=== PATIENT | female | born 1995 | race Caucasian/White ===

== ENCOUNTER 2021-02-23 16:36 | Emergency (ER) | payer MEDICAID, SELFPAY ==
[2021-02-23 16:37] VITALS: BP 105/77; PULSE 73; RESP 16; TEMP 36.1; O2SAT 98; BMI 24.7
[2021-02-23 16:59] LABS: Bacteria 0 SEEN /hpf (None Seen); Mucous, Urine 0 SEEN /hpf (<or=2+); Red Blood Cells-Urine 0 SEEN /hpf (0-5)
[2021-02-23 17:07] LABS: Color, Urine Yellow (Yellow); Glucose, Dipstick Normal (Normal); Ketone-Dipstick Negative (Negative); Leukocyte Esterase-Dipstick 25 /ul (Negative); Nitrite-Dipstick Negative (Negative); Occult Blood-Urine Negative /ul (Negative); Protein-Dipstick Negative (Negative); Urine Bilirubin Dipstick Negative (Negative); Urine Clarity Clear (Clear); Urine Urobilinogen Normal (Normal)
--- NOTE | 2021-02-23 17:08 | CT_ITS ---
EXAM: CT ABDOMEN AND PELVIS WITHOUT INTRAVENOUS CONTRAST : 1995 CLINICAL INDICATION: Flank pain TECHNIQUE: Helically acquired images were obtained of the abdomen and pelvis without intravenous contrast. This CT exam was performed using one or more of the following dose reduction techniques: automated exposure control, adjustment of the mA and/or kV according to patient size, and/or use of iterative reconstruction technique. This report was created using re[employer] report generation technology. COMPARISON: None. FINDINGS: LOWER THORAX: Unremarkable. Lung bases are clear. No cardiomegaly. No significant pericardial effusion. ABDOMEN: LIVER: Unremarkable. Homogeneous. GALLBLADDER AND BILE DUCTS: Unremarkable. No calcified gallstones. No gallbladder distention or wall edema. No intra- or extrahepatic biliary ductal dilation. PANCREAS: Unremarkable. No focal cystic mass. SPLEEN: Unremarkable. Normal size without focal cystic or solid mass. ADRENALS: Unremarkable. No nodules. KIDNEYS AND URETERS: Unremarkable. Normal renal size and position. No hydronephrosis. STOMACH AND BOWEL: Unremarkable. No stomach or bowel distention. No focal inflammatory change. PELVIS: APPENDIX: No evidence of acute appendicitis. BLADDER: Unremarkable. REPRODUCTIVE: Unremarkable as visualized. No mass. ABDOMEN and PELVIS: INTRAPERITONEAL SPACE: Unremarkable. No ascites or other fluid collection. No free air. BONES/JOINTS: Unremarkable. No suspicious lytic or blastic abnormality. SOFT TISSUES: Unremarkable. No discrete abdominal or pelvic wall hernia. VASCULATURE: Unremarkable. Abdominal aorta is non-dilated. LYMPH NODES: Unremarkable. No enlarged lymph nodes. CT/Abdomen/Pelvis without Cont IMPRESSION: Negative CT of the abdomen and pelvis without intravenous contrast. Individualized dose optimization techniques were used for this CT. at 1827 Reported and signed by: Marcin Nixon MD Electronically Signed: Marcin Nixon MD at 18:26 EDT Tel , Service support ,
--- NOTE | 2021-02-23 17:10 | EX.ED.DYSGE1 ---
HPI History of Present Illness Chief Complaint: Flank Pain Informant: patient Onset/Context/Timing Onset: Yesterday Context: Gradual Onset Timing: Continuous Quality: Sharp Location: Lower back, lower abdomen Worsened by: Nothing Relieved by: Nothing Narrative Narrative: Patient presents with lower back and lower abdominal pain that began yesterday. Patient states it is getting progressively worse. Patient states it started in her back last night. Patient states today radiates around to her lower abdomen. Patient denies any dysuria or hematuria. Patient denies any fevers or chills. Patient denies any nausea or vomiting. Patient states nothing makes the pain worse. Patient states nothing makes the pain better. Patient states she has a history of ovarian cysts and this feels similar to prior cysts. PFSH PFSH no medical history Home Medications NK 02/23/21 [History Last Taken Unknown] Allergy/AdvReac Type Severity Reaction Status Date / Time No Known Allergies Allergy Verified 02/23/21 16:36 no surgical history Social History Smoking Status: Never smoker ROS ROS ED Constitutional Constitutional ED: Denies chills or fever(s) Eyes Eyes: Denies blurry vision or change in vision ENT ENT ED: Denies rhinorrhea or sore throat Cardiovascular Cardiovascular: Denies chest pain or palpitations Respiratory/Chest Respiratory/Chest: Denies cough or dyspnea Gastrointestinal Gastrointestinal: Denies nausea or vomiting Genitourinary Genitourinary ED: Denies dysuria or hematuria Musculoskeletal Musculoskeletal: Denies back pain or neck pain Integumentary Denies abscess or rash Neurologic Neurologic: Denies headache(s) or weakness Allergic/Immunologic Allergic/Immunologic ED: Denies mouth swelling or urticaria EXAM Physical Exam Const Vital Signs: 02/23/21 16:37 02/23/21 18:43 Temperature 96.9 F L Temperature Source Temporal Pulse Rate 73 62 Respiratory Rate 16 17 Blood Pressure 105/77 134/77 H Blood Pressure Mean 86 96 Pulse Ox 98 98 Oxygen Delivery Method Room Air Room Air Positive well nourished and well developed General Appearance ED: well developed HEENT Reports moist mucous membranes Neck supple and no JVD Resp normal respiratory effort and clear to auscultation bilaterally Cardio regular rate, regular rhythm and no murmurs GI normal to inspection, nondistended, normoactive bowel sounds Palpation: soft and tender suprapubic; Negative for guarding or rebound tenderness present Back/Spine Back/Spine Narrative: There is mild tenderness of the lower lumbar paraspinal muscles bilaterally. There is no midline tenderness. There is no edema or ecchymosis. There is no bony crepitance or step-off. There is good range of motion. Extremity normal to inspection General Extremety ED: Negative for edema or tenderness General Extremity: Negative for edema Neuro oriented x3, CN's II-XII intact bilaterally and no sensory deficits noted Sensorium / Orientation: alert Motor Exam: strength 5/5 throughout Psych mental status grossly normal Skin no rashes or lesions noted MDM MDM MDM Narrative Medical decision making narrative: CBC and comprehensive metabolic profile were obtained were within normal limits. Urinalysis does not show any evidence of urinary tract infection. Urine hCG was negative. CT scan of the abdomen and pelvis was obtained. There is no acute intra-abdominal abnormality. This was interpreted by the radiologist and reviewed by myself. Patient was feeling better on reevaluation. Patient was instructed to follow-up with her primary care physician in 5 to 7 days. Patient understood and was agreeable with the plan. All questions were answered. Lab Data Attestation: I reviewed the patient's lab results. Labs: Laboratory Results - last 24 hr 02/23/21 02/23/21 02/23/21 16:45 17:20 17:20 WBC 5.9 RBC 4.39 Hgb 13.0 Hct 38.6 MCV 87.9 MCH 29.6 MCHC 33.7 RDW Std Deviation 40.0 RDW Coeff of Vaishali 12.5 Plt Count 211 MPV 11.8 Immature Gran % (Auto) 0.200 Neut % (Auto) 52.9 Lymph % (Auto) 33.3 [place] % (Auto) 10.2 H Eos % (Auto) 3.1 Baso % (Auto) 0.3 Absolute Neuts (auto) 3.1 Absolute Lymphs (auto) 1.95 Nucleated RBC % 0 Differential Comment SCANNED Sodium 138 Potassium 3.7 Chloride 110 H Carbon Dioxide 23.0 Anion Gap 5 BUN 14 Creatinine 0.90 Estim Creat Clear Calc 67.44 Est GFR (MDRD) Af Amer 96 Est GFR (MDRD) Non-Af 80 BUN/Creatinine Ratio 15.5 Glucose 110 H Calcium 8.6 Total Bilirubin 0.30 AST 23 ALT 13 Alkaline Phosphatase 69 Total Protein 7.1 Albumin 3.7 Globulin 3.4 Albumin/Globulin Ratio 1.1 Urine Color Yellow Urine Clarity Clear Urine pH 7.0 Ur Specific [place] 1.010 Urine Protein Negative Urine Glucose (UA) Normal Urine Ketones Negative Urine Occult Blood Negative Urine Nitrite Negative Urine Bilirubin Negative Urine Urobilinogen Normal Ur Leukocyte Esterase 25 H Urine RBC 0 SEEN Urine WBC 0-5 SEEN Ur Squamous Epith Cells 0-5 SEEN Urine Bacteria 0 SEEN Urine Mucus 0 SEEN Urine Test Negative Radiography Diagnostic Testing: Radiology Impression Abdomen/Pelvis CT 02/23/21 17:08 IMPRESSION: Negative CT of the abdomen and pelvis without intravenous contrast. Individualized dose optimization techniques were used for this CT. at 1827 Reported and signed by: Marcin Nixon MD Electronically Signed: Marcin Nixon MD at 18:26 EDT Tel , Service support , Discharge Plan Triage Chief Complaint: Flank Pain ED Provider: Michael Holden Dx/Rx/DC Orders Clinical Impression: Pelvic pain in female Instructions: ED Pelvic Pain, Unknown Cause Prescriptions: No Action NK RF: 0 Primary Care Provider: Care Physician,No Primary Referrals: Luis F Silva DO [NON-STAFF] - 5-7 Days Care Physician,No Primary [Primary Care Provider] - Disposition Disposition: Home, Self Care
[2021-02-23 17:13] LABS: Internal QC Validated? YES +Cl - CLEAR BKGD; Pregnancy, Urine Negative Negative; Squamous Epithelial Cells - UA 0-5 SEEN /hpf (5-10); White Blood Cells 0-5 SEEN /hpf (0-5)
--- NOTE | 2021-02-23 17:38 | CM.ED ---
SW Note Referral Source: Case Find Referral Reason: No Primary Care Physician (PCP) SW reviewed chart and noted that patient has no PCP. SW provided patient with list of [facility] and [facility] Physician List for reference. SW also provided patient with handout ?Where to go When?. No other issues or concerns voiced at this time. SW remains available for any additional needs. Plan: Provided patient with PCP information Erica KENDALL
[2021-02-23 17:39] LABS: Absolute Lymphocyte Count 1.95 X10^3/uL (0.83-4.51); Absolute Neutrophil Count 3.1 X10^3/uL (2.0-7.7); Basophil# 0.02 X10^3/uL; Basophil% 0.3 % (0-1); Eosinophil# 0.18 X10^3/uL; Eosinophils% 3.1 % (0-5); Hematocrit 38.6 % (37-47); Lymphocyte # 1.95 X10^3/ul (0.83-4.51); Lymphocyte % 33.3 % (19-41); Mean Corp Hgb Conc 33.7 g/dL (32-36); Mean Corpuscular Hgb 29.6 pg (27.0-32.0); Mean Corpuscular Volume 87.9 fL (81-99); Mean Platelet Vol. 11.8 fl (6.2-12.0); Monocyte% 10.2 % (0-10); NRBC Flagged by Analyzer 0 % (0-5); Neutrophil % 52.9 % (47-70); POSITIVE COUNT YES; Platelet Count 211 K/mm3 (150-450); RBC Distribution Width CV 12.5 % (11.6-14.6); Red Blood Count 4.39 M/mm3 (4.2-5.4); White Blood Count 5.9 K/mm3 (4.4-11.0)
[2021-02-23 17:42] LABS: Differential Indicated SCAN CRITERIA MET
[2021-02-23 17:59] LABS: ALB/GLOB Ratio 1.1 RATIO (0.9-2.4); AST(SGOT) 23 U/L (15-37); Alanine Aminotransfer ALT/SGPT 13 U/L (13-56); Albumin, Serum 3.7 g/dL (3.2-5.0); Alkaline Phosphatase 69 U/L (45-117); Anion Gap 5 (5-15); BUN 14 mg/dL (7-18); BUN/Creat Ratio 15.5 RATIO (10-20); Calcium,Total 8.6 mg/dL (8.5-10.1); Chloride 110 mmol/L (98-107); EST Glomerular Filtration Rate 80 mL/min (>60); Est Glom Filt Rate - Afr Amer 96 mL/min (>60); Estimated Creatinine Clearance 67.44 ml/min; Globulin 3.4 g/dL (2.2-4.2); Glucose 110 mg/dL (74-106); Potassium 3.7 mmol/L (3.5-5.1); Protein, Total 7.1 g/dL (6.4-8.2); Sodium Level 138 mmol/L (136-145)
[2021-02-23 18:07] LABS: Differential Comment SCANNED
[2021-02-23 18:43] VITALS: BP 134/77; PULSE 62; RESP 17; O2SAT 98
== END 2021-02-23 19:19 | disposition home or self-care (01) ==
PROVIDERS: Student in an Organized Health Care Education/Training Program; Emergency Provider Emergency Medicine
DX: R10.2 Pelvic and perineal pain (principal)
CPT/HCPCS: 74176; 80053; 81001; 81025; 85025; 99282; A4216